=== PATIENT | male | born 1985 | race African-American/Black ===

== ENCOUNTER 2024-09-08 06:07 | Emergency (ER) | payer MEDICAID ==
[~2024-09-08] VITALS: Ht 175.3 cm; Wt 101.0 kg
[~2024-09-08 06:07] MED LIST: ALBU2.5V13 IH
[2024-09-08] MEDS: DEXAMETHASONE 4MG/ML 1ML VIAL IM ONE (06:59)
[2024-09-08 07:00] VITALS: PULSE 77; RESP 20; O2SAT 99
[2024-09-08] MEDS: IPRATROPIUM BROMIDE (0.02%) 0.5MG/2.5ML NEB HHN STA (07:10)
[2024-09-08] MEDS: ALBUTEROL (0.083%) 2.5MG/3ML NEB HHN STA (07:11)
[2024-09-08] MEDS ORDERED: ALBU90AE INH (07:48)
[2024-09-08] MEDS ORDERED: ALBU2.5V13 NEB (07:48)
[2024-09-08] MEDS ORDERED: P50 MT (07:49)
[2024-09-08 08:20] VITALS: BP 140/88; PULSE 95; RESP 20; TEMP 36.83628; O2SAT 99
== END 2024-09-08 08:20 | disposition home or self-care (01) ==
LOC: ER 06:07
DX: J45.901 Unspecified asthma with (acute) exacerbation (principal); Z79.899 Other long term (current) drug therapy
CPT/HCPCS: 94640; 96372; 99283; J1100; Z7610 ×2

== ENCOUNTER 2024-09-21 17:18 | Emergency (ER) | payer MEDICAID ==
[~2024-09-21] VITALS: Ht 175.3 cm; Wt 101.6 kg
[~2024-09-21 17:18] MED LIST changes: +ALBU2.5V13 NEB; +ALBU90AE INH; +P50 MT
[2024-09-21 17:25] VITALS: O2SAT 90
[2024-09-21] MEDS: MAGNESIUM 2 G PREMIX 50 ML IV ONE (18:38)
[2024-09-21] MEDS: METHYLPREDNISOLONE SOD SUCC 125MG/2ML (ACT-O-VIAL) IV ONE (18:39)
[2024-09-21] MEDS: IPRATROPIUM BROMIDE (0.02%) 0.5MG/2.5ML NEB HHN ONE (18:50)
[2024-09-21 18:51] VITALS: PULSE 102; RESP 20
[2024-09-21] MEDS: ALBUTEROL (0.083%) 2.5MG/3ML NEB HHN ONE (18:51)
[2024-09-21] MEDS ORDERED: FLUT1DIS3 INH (21:56)
[2024-09-21] MEDS ORDERED: P50 MT (21:56)
[2024-09-21 22:16] VITALS: BP 138/68; PULSE 95; RESP 20; TEMP 36.83628; O2SAT 96
== END 2024-09-21 22:17 | disposition home or self-care (01) ==
LOC: ER 17:18 → EDBEDREQTM 21:01 → EDBEDREQ 21:01 → ER 22:17
DX: J45.901 Unspecified asthma with (acute) exacerbation (principal); F12.10 Cannabis abuse, uncomplicated; Z79.51 Long term (current) use of inhaled steroids
CPT/HCPCS: 94640; 96365; 96375; 99291; J3475; J2919; Z7610 ×2

== ENCOUNTER 2024-11-22 17:10 | Emergency (ER) | payer MEDICAID ==
[~2024-11-22] VITALS: Ht 175.3 cm; Wt 97.0 kg
[~2024-11-22 17:10] MED LIST changes: -ALBU2.5V13 IH; +FLUT1DIS3 INH
[2024-11-22 17:13] VITALS: O2SAT 96
[2024-11-22 17:20] VITALS: BP 142/97; TEMP 98.6
[2024-11-22] MEDS: PREDNISONE 20MG TABLET PO STA (17:59)
[2024-11-22 18:23] VITALS: PULSE 82; RESP 19; O2SAT 97
[2024-11-22] MEDS: IPRATROPIUM BROMIDE (0.02%) 0.5MG/2.5ML NEB HHN STA (18:23)
[2024-11-22] MEDS: ALBUTEROL (0.083%) 2.5MG/3ML NEB HHN STA (18:23)
[2024-11-22] MEDS ORDERED: ALBU90AE INH (18:39)
[2024-11-22] MEDS ORDERED: P20 MT (18:39)
== END 2024-11-22 19:16 | disposition home or self-care (01) ==
LOC: ER 17:10
DX: J45.901 Unspecified asthma with (acute) exacerbation (principal); I11.9 Hypertensive heart disease without heart failure; Z79.51 Long term (current) use of inhaled steroids; F12.90 Cannabis use, unspecified, uncomplicated
CPT/HCPCS: 71045; 94640; 93005; 99283; J7512; Z7610 ×3

== ENCOUNTER 2025-07-10 06:19 | Emergency (ER) | payer MEDICAID ==
[~2025-07-10] VITALS: Ht 175.3 cm; Wt 95.5 kg
[~2025-07-10 06:19] MED LIST changes: +P20 MT
[2025-07-10 06:30] VITALS: TEMP 36.7
[2025-07-10 06:40] VITALS: PULSE 87; RESP 16; O2SAT 99
[2025-07-10] MEDS: IPRATROPIUM BROMIDE (0.02%) 0.5MG/2.5ML NEB HHN SCH (06:40)
[2025-07-10] MEDS: ALBUTEROL (0.083%) 2.5MG/3ML NEB HHN SCH (06:40)
[2025-07-10] MEDS: METHYLPREDNISOLONE SOD SUCC 125MG/2ML (ACT-O-VIAL) IV ONE (06:50)
[2025-07-10] MEDS: MAGNESIUM 2 G PREMIX 50 ML IV ONE (06:51)
[2025-07-10 07:06] LABS: BASOPHILS % 0.6 % (0.0-2.0); EOSINOPHILS % 7.5 % (0.0-5.0); HEMATOCRIT. 40.7 % (42.0-52.0); HEMOGLOBIN. 13.6 g/dL (14.0-18.0); LYMPHOCYTES % 39.8 % (20.0-50.0); MEAN PLATELET VOLUME 8.2 fl (7.4-10.4); MONOCYTES % 14.2 % (2.0-8.0); NEUTROPHILS % 37.9 % (40.0-76.0); PLATELET 243 x1000/uL (130-400); RED BLOOD CELL COUNT 5.18 mill/uL (4.7-6.1); RED CELL DISTRIBUTION WIDTH 15.8 % (11.6-14.6)
[2025-07-10 07:20] LABS: CREATININE 1.2 mg/dL (0.6-1.3); TROPONIN I HIGH SENSITIVITY < 4 ng/L (3.0-53); UREA NITROGEN BLOOD 12 mg/dL (9-23)
[2025-07-10 07:28] VITALS: PULSE 90; RESP 18; O2SAT 99
[2025-07-10] MEDS ORDERED: ALBU90AE INH (07:30)
[2025-07-10] MEDS ORDERED: ALBU2.5V13 NEB (07:30)
[2025-07-10] MEDS ORDERED: P50 PO (07:30)
[2025-07-10 07:36] VITALS: PULSE 87; RESP 18; O2SAT 100
[2025-07-10 07:45] VITALS: BP 145/97; PULSE 82; RESP 16; O2SAT 100
== END 2025-07-10 08:17 | disposition home or self-care (01) ==
LOC: ER 06:19 → CANBEDREQ 08:17 → ER 08:17
DX: J45.901 Unspecified asthma with (acute) exacerbation (principal); F17.210 Nicotine dependence, cigarettes, uncomplicated; F12.10 Cannabis abuse, uncomplicated; Z79.899 Other long term (current) drug therapy
CPT/HCPCS: 80048; 85025; 84484; 36415; 71045; 94640; 93005; 96365; 96375; 99285; J3475; J2919; Z7610 ×4; 94070; 94664; 98960

== ENCOUNTER 2025-08-06 21:18 | Emergency (ER) | payer MEDICAID ==
[~2025-08-06] VITALS: Ht 175.3 cm; Wt 96.3 kg
[~2025-08-06 21:18] MED LIST changes: +P50 PO
[2025-08-06] MEDS: ALBUTEROL (0.083%) 2.5MG/3ML NEB HHN SCH (22:14)
[2025-08-06] MEDS: IPRATROPIUM BROMIDE (0.02%) 0.5MG/2.5ML NEB HHN SCH (22:15)
[2025-08-06 22:20] VITALS: PULSE 72; RESP 17; O2SAT 99
[2025-08-06 22:39] LABS: HEMATOCRIT. 40.8 % (42.0-52.0); HEMOGLOBIN. 14.0 g/dL (14.0-18.0); MEAN PLATELET VOLUME 9.4 fl (7.4-10.4); PLATELET 234 x1000/uL (130-400); RED BLOOD CELL COUNT 5.26 mill/uL (4.7-6.1); RED CELL DISTRIBUTION WIDTH 15.8 % (11.6-14.6)
[2025-08-06 22:52] LABS: CREATININE 1.1 mg/dL (0.6-1.3)
[2025-08-06 22:53] LABS: UREA NITROGEN BLOOD 10 mg/dL (9-23)
[2025-08-06] MEDS: SODIUM CHLORIDE 0.9% 1,000 ML IV ONE (22:54)
[2025-08-06 22:56] LABS: EOSINOPHILS % MANUAL 1.0 % (0.0-5.0); LYMPHOCYTES % MANUAL 28.0 % (20.0-50.0); MONOCYTES % MANUAL 13.0 % (2.0-8.0); NEUTROPHILS % MANUAL 58.0 % (45.0-75.0); PLATELET ESTIMATE NORMAL
[2025-08-06] MEDS: MAGNESIUM 2 G PREMIX 50 ML IV ONE (22:56)
[2025-08-06] MEDS: PREDNISONE 20MG TABLET PO ONE (22:56)
[2025-08-07] MEDS ORDERED: P50 MT (00:12)
[2025-08-07] MEDS ORDERED: IPRA3AMP31 NEB (00:12)
[2025-08-07] MEDS ORDERED: ALBU90AE INH (00:12)
[2025-08-07] MEDS ORDERED: ALBU2.5V13 NEB (00:12)
[2025-08-07 01:07] VITALS: BP 135/84; PULSE 91; RESP 20; TEMP 36.8; O2SAT 100
== END 2025-08-07 01:22 | disposition home or self-care (01) ==
LOC: ER 21:18
DX: J45.901 Unspecified asthma with (acute) exacerbation (principal); F12.90 Cannabis use, unspecified, uncomplicated; Z79.51 Long term (current) use of inhaled steroids; Z79.52 Long term (current) use of systemic steroids; Z79.899 Other long term (current) drug therapy
CPT/HCPCS: 80048; 85025; 36415; 71045; 94640; 96365; 96366; 99284; J7512; J3475; Z7610; J7030; 94070

== ENCOUNTER 2025-08-20 00:35 | Emergency (ER) | payer MEDICAID ==
[~2025-08-20] VITALS: Ht 175.3 cm; Wt 97.0 kg
[~2025-08-20 00:35] MED LIST changes: +IPRA3AMP31 NEB
[2025-08-20 00:40] VITALS: O2SAT 100
[2025-08-20] MEDS: MAGNESIUM 2 G PREMIX 50 ML IV ONE (01:30)
[2025-08-20] MEDS: METHYLPREDNISOLONE SOD SUCC 125MG/2ML (ACT-O-VIAL) IV ONE (01:30)
[2025-08-20 01:46] VITALS: PULSE 114; RESP 24; O2SAT 99
[2025-08-20] MEDS: IPRATROPIUM/ALBUTEROL 0.5-3(2.5)MG/3ML NEB HHN ONE ×2 (01:46→01:56)
[2025-08-20 01:56] VITALS: PULSE 111; RESP 18; O2SAT 99
[2025-08-20 02:06] VITALS: PULSE 106; RESP 22; O2SAT 99
[2025-08-20] MEDS: IPRATROPIUM/ALBUTEROL 0.5-3(2.5)MG/3ML NEB NEB ONE (02:06)
[2025-08-20 03:04] VITALS: BP 154/71; PULSE 80; RESP 14; TEMP 36.8
[2025-08-20 04:29] LABS: BASOPHILS % 0.7 % (0.0-2.0); EOSINOPHILS % 5.2 % (0.0-5.0); HEMATOCRIT. 43.2 % (42.0-52.0); HEMOGLOBIN. 14.5 g/dL (14.0-18.0); LYMPHOCYTES % 18.2 % (20.0-50.0); MEAN PLATELET VOLUME 8.9 fl (7.4-10.4); MONOCYTES % 11.9 % (2.0-8.0); NEUTROPHILS % 64.0 % (40.0-76.0); PLATELET 225 x1000/uL (130-400); RED BLOOD CELL COUNT 5.49 mill/uL (4.7-6.1); RED CELL DISTRIBUTION WIDTH 16.2 % (11.6-14.6)
[2025-08-20 04:42] LABS: CREATININE 1.1 mg/dL (0.6-1.3); UREA NITROGEN BLOOD 14 mg/dL (9-23)
== END 2025-08-20 05:15 | disposition left against medical advice (07) ==
LOC: ER 00:35 → EDBEDREQTM 02:10 → EDBEDREQ 02:10 → ER 05:15 → ENRESERV 06:57 → CANBEDREQ 07:22
DX: J45.901 Unspecified asthma with (acute) exacerbation (principal); Z20.822 Contact with and (suspected) exposure to COVID-19; Z79.899 Other long term (current) drug therapy
CPT/HCPCS: 80048; 85025; 36415; 71045; 94640; 93005; 96365; 96366; 96375; 99291; 87426; J3475; J2919; Z7610 ×4; 94070; A4606